=== PATIENT | male | born 1960 | race Caucasian/White ===

== ENCOUNTER 2016-11-04 11:17 | Inpatient (IN) | payer OTHER ==
[2016-11-04 12:24] VITALS: BMI 21.7
[2016-11-04 12:36] LABS: BASO # 0.1 K/uL (0.0-0.2); BASO % 0.7 % (0.0-2.0); EOS # 0.1 K/uL (0.0-0.7); EOS % 1.6 % (0.0-4.0); HEMOGLOBIN 9.1 g/dL (12.0-18.0); LYMPH # 0.9 K/uL (1.0-4.3); LYMPH % 11.7 % (20.0-40.0); MEAN CORPUSCULAR HEMOGLOBIN 37.2 pg (27.0-31.0); MEAN CORPUSCULAR HGB CONC 33.4 g/dL (33.0-37.0); MEAN PLATELET VOLUME 7.8 fL (7.2-11.7); MONO # 0.5 K/uL (0.0-0.8); MONO % 6.5 % (0.0-10.0); NEUT # 5.8 K/uL (1.8-7.0); NEUT % 79.5 % (50.0-75.0); RBC 2.44 Mil/uL (4.40-5.90); RED CELL DISTRIBUTION WIDTH 14.2 % (11.5-14.5); WHITE BLOOD COUNT 7.3 K/uL (4.8-10.8)
[2016-11-04 12:40] LABS: MEAN CELL VOLUME 111.6 fL (80.0-94.0)
[2016-11-04 12:45] LABS: ALBUMIN 2.8 g/dL (3.5-5.0)
[2016-11-04 12:48] LABS: ALB/GLOB RATIO 0.7 (1.0-2.1); ALT/SGPT 27 U/L (21-72); AST/SGOT 70 U/L (17-59); BLOOD UREA NITROGEN 12 mg/dL (9-20); CALCIUM 8.3 mg/dl (8.6-10.4); GFR AFRICAN-AMERICAN > 60; GFR NON-AFRICAN AMERICAN > 60
--- NOTE | 2016-11-04 13:24 | C.PDOC ---
History Of Present Illness 56 year old male who presents to the ER with a complaint of intermittent lightheadedness and unsteady gait for the past 3 weeks. Patient states he has never had symptoms like this before; he reports multiple occasions where he has fallen backwards and hit his head due to the symptoms. Denies headache, fever, cough, nausea, vomiting, or diarrhea. Time Seen by Provider: 11/04/16 13:01 Chief Complaint (Nursing): Dizziness/Lightheaded History Per: Patient History/Exam Limitations: no limitations Onset/Duration Of Symptoms: Days (3 weeks), Intermittent Episodes Current Symptoms Are (Timing): Still Present Activity At Onset Of Symptoms: Standing, Walking Associated Symptoms Preceding Syncopal Episode: Lightheadedness Seizure Or Post-ictal Symptoms: None Fall Associated With With Symptoms: Yes Recent travel outside of the [place]: No - Symptoms Of CVA Associated Symptoms: denies: Impaired Speech, Seizure Activity, New Vision Deficit(Left), New Vision Deficit(Right), Decreased Ability To Walk, New Confusion, Other Past Medical History Reviewed: Historical Data, Nursing Documentation, Vital Signs Vital Signs: Last Vital Signs Temp 98.8 F 11/05/16 16:00 Pulse 81 11/05/16 16:00 Resp 20 11/05/16 16:00 BP 136/88 11/05/16 16:00 Pulse Ox 100 11/05/16 16:00 - Medical History PMH: HIV, HTN, Seizures Surgical History: No Surg Hx - [facility] Procedures INTRODUCTION OF NUTRITIONAL INTO PERIPH VEIN, PERC APPROACH (02/06/16) Family History: States: Unknown Family Hx - Social History Hx Alcohol Use: Yes Hx Substance Use: No - Immunization History Hx Influenza Vaccination: No Review Of Systems Except As Marked, All Systems Reviewed And Found Negative. Constitutional: Negative for: Fever Cardiovascular: Negative for: Chest Pain, Palpitations Respiratory: Negative for: Cough Gastrointestinal: Negative for: Nausea, Vomiting, Diarrhea Neurological: Positive for: Other (Lightheadedness. Unsteady gait.). Negative for: Headache Physical Exam - Physical Exam Appears: Non-toxic, No Acute Distress Skin: Normal Color, Warm, Dry Head: Atraumatic, Normacephalic Eye(s): bilateral: Normal Inspection, PERRL, EOMI Oral Mucosa: Moist Neck: Normal, Supple Chest: Symmetrical, No Tenderness Cardiovascular: Rhythm Regular, No Murmur Respiratory: Normal Breath Sounds, No Rales, No Rhonchi, No Wheezing Gastrointestinal/Abdominal: Soft, No Tenderness Pulses: Left Radial: Normal, Right Radial: Normal Neurological/Psych: Oriented x3, Normal Speech, Normal Cognition, Normal Motor, Normal Sensation ED Course And Treatment - Laboratory Results Result Diagrams: 11/05/16 08:08 11/05/16 08:08 O2 Sat by Pulse Oximetry: 100 (Room air) Pulse Ox Interpretation: Normal - CT Scan/US CT Head Other Rad Studies (CT/US): Read By Radiologist, Radiology Report Reviewed CT/US Interpretation: PROCEDURE: CT HEAD WITHOUT CONTRAST. HISTORY: off balance hx HIV. COMPARISON: 02/06/2016. TECHNIQUE: Axial computed tomography images were obtained through the head/brain without intravenous contrast. Radiation dose: Total exam DLP = 981.84 mGy-cm. This CT exam was performed using one or more of the following dose reduction techniques: Automated exposure control, adjustment of the mA and/or kV according to patient size, and/or use of iterative reconstruction technique. FINDINGS: HEMORRHAGE: No intracranial hemorrhage. BRAIN: No mass effect or edema. Mild to moderate diffuse atrophy slightly greater than expected patient age. Mild periventricular white matter lucency consistent with age related chronic microvascular ischemic change. No evidence of acute infarct. VENTRICLES: Unremarkable. No hydrocephalus. CALVARIUM: Unremarkable. PARANASAL SINUSES: Mild chronic ethmoid and sphenoid sinusitis. MASTOID AIR CELLS: Unremarkable as visualized. No inflammatory changes. OTHER FINDINGS: None. IMPRESSION: No intracranial mass, hemorrhage or evidence of acute infarct. Mild to moderate atrophy slightly greater than expected for patient age. Mild chronic white matter ischemic change. Medical Decision Making Medical Decision Making: EKG, head CT, potassium, and urinalysis ordered. EKG: Sinus tach 101, normal axis, no STEMI. Disposition - Disposition Disposition: HOSPITALIZED Disposition Time: 15:31 Condition: STABLE - Clinical Impression Clinical Impression: Dizziness, HIV disease, Unsteady gait - Scribe Statement The provider has reviewed the documentation as recorded by the Scriblillian Clark All medical record entries made by the Scribe were at my direction and personally dictated by me. I have reviewed the chart and agree that the record accurately reflects my personal performance of the history, physical exam, medical decision making, and the department course for this patient. I have also personally directed, reviewed, and agree with the discharge instructions and disposition.
[2016-11-04] MEDS ORDERED: Potassium Chloride 20 mEq ER Tab PO STA (13:32)
[2016-11-04] MEDS ORDERED: Potassium Chloride 20 mEq ER Tab PO ONE (13:43)
--- NOTE | 2016-11-04 14:24 | CT ---
PROCEDURE: CT HEAD WITHOUT CONTRAST. HISTORY: off balance hx HIV COMPARISON: 02/06/2016 TECHNIQUE: Axial computed tomography images were obtained through the head/brain without intravenous contrast. Radiation dose: Total exam DLP = 981.84 mGy-cm. This CT exam was performed using one or more of the following dose reduction techniques: Automated exposure control, adjustment of the mA and/or kV according to patient size, and/or use of iterative reconstruction technique. FINDINGS: HEMORRHAGE: No intracranial hemorrhage. BRAIN: No mass effect or edema. Mild to moderate diffuse atrophy slightly greater than expected patient age. Mild periventricular white matter lucency consistent with age related chronic microvascular ischemic change. No evidence of acute infarct. VENTRICLES: Unremarkable. No hydrocephalus. CALVARIUM: Unremarkable. PARANASAL SINUSES: Mild chronic ethmoid and sphenoid sinusitis. MASTOID AIR CELLS: Unremarkable as visualized. No inflammatory changes. OTHER FINDINGS: None. IMPRESSION: No intracranial mass, hemorrhage or evidence of acute infarct. Mild to moderate atrophy slightly greater than expected for patient age. Mild chronic white matter ischemic change.
[2016-11-04 15:39] LABS: SQUAMOUS EPITHIAL < 1 /hpf (0-5); URINE BILIRUBIN NEGATIVE (NEGATIVE); URINE BLOOD NEGATIVE (NEGATIVE); URINE CLARITY Clear (Clear); URINE COLOR Yellow (YELLOW); URINE GLUCOSE (UA) NORMAL (Normal); URINE LEUKOCYTE ESTERASE NEG Leu/uL (Negative); URINE NITRATE NEGATIVE (NEGATIVE); URINE PROTEIN NEGATIVE (NEGATIVE); URINE UROBILINOGEN NORMAL mg/dL (0.2-1.0)
--- NOTE | 2016-11-04 20:52 | CP.PCM.HP ---
History of Present Illness - History of Present Illness History of Present Illness: COMPREHENSIVE HISTORY & PHYSICAL EXAM HPI Patient is admitted for acute vertigo, unable to walk with unsteady gait. For the last couple of weeks patient been complaining of severe dizziness, unable to walk and with unsteady gait. There is no history of fall or loss of consciousness. Patient has no loss of power in the lower extremities. PAST HIST. Patient is a history of HIV for a long time on anti-viral therapy. Patient was admitted in [facility] in 2016 for acute diarrhea and renal failure. During that time patient had cryptosporidial and positive toxoplasma titers. Patient was treated adequately and has since then resolved. PERSONAL HIST: Smoking. N Alcohol. N Allergy N Travel_- . FAMILY HIST : ROS : Constitutional: Negative for weight change, chills, night sweats, fatigue and usage of assist device. Eyes: Negative for redness, swelling, itching, discharge, vision changes, blurry vision, double vision, glaucoma, cataracts, Ears: Negative for hearing loss, ringing, , tinnitus, vertigo Nose: Negative for rhinorrhea, stuffiness, sniffing, itching, postnasal drip, discoloration, nasal congestion and epistaxis. Throat: Negative for throat clearing, sore throat, hoarseness, difficulty swallowing and difficulty speaking. Respiratory: Negative for cough, chest tightness, sputum or phlegm, chronic cough, hemoptysis, wheezing, snoring at night, pleuritic chest pain and daytime somnolence. Cardiovascular: Negative for chest pain, palpitations, orthopnea, PND, Edema of legs, leg cramps, angina, claudication, , irregular heartbeat, Neurology: Negative for irritability, muscle weakness, numbness and tingling, seizures, tremors, migraines, slurred speech, syncope, memory loss, mood changes , recurrent headaches Gastrointestinal: Negative for difficulty swallowing, diarrhea, constipation, black stools, rectal bleeding, nausea, flatulence, reflux, poor appetite, changes in bowel habits, abdominal pain Genitourinary: Negative for frequent urination, hematuria, discharge, incontinence, urinary retention, frequent UTI, Psychiatric: Negative for depression, anxiety/panic, suicidal tendencies, Musculoskeletal: Negative for swollen joints, back pain, , neck pain, morning stiffness of joints, . Skin: Negative for rash, ulcers, itching, dry skin and pigmented lesions. P/E: Constitutional: Appears stated age and in no apparent distress. Head: Normocephalic. Ears: External ear canals patent without inflammation. Tympanic membranes intact with normal light reflex and landmark. Eyes: Pupils are central, bilaterally equal, symmetrical and reacts to light with normal movements and no icterus or pallor. Nose: External nares are patent. Mucosa is pink Mouth-Throat: Good general appearance and condition. No post-pharyngeal/oropharyngeal erythema and tonsillar hypertrophy. Good dental hygiene. Neck-Lymphatic: Neck is supple with normal ROM, no thyromegaly, lymph nodes or masses. JVD is normal with no carotid bruit. Lungs: Clear to percussion and auscultation with bilateral normal air entry. Cardiovascular: S1 and S2 are normal with no murmurs, gallops and rub. GI Exam: No hepatomegaly. Abdomen is soft and non-tender. No Organomegaly , masses or hernias are evident and bowel sounds are normal and active. Neurology: Higher function and all cranial nerves intact, with no gross motor or sensory deficit. Superficial and deep reflexes are normal with downwards planters. No cerebellar deficit with normal gait. Musculoskeletal: No tender spots with normal curvature of the spine with no swelling or restricted ROM of the small and large joints. Extremities: Homans sign absent. Intact pulses with no pitting edema, calf tenderness or skin color changes. Skin: No rash, eruptions or abnormal skin pigmentation LAB/RADIOLOGY: ASSESMENT : Acute vertigo, probably secondary to labyrinthitis. No evidence of any cerebellar involvement or peripheral neuropathy. HIV positive, on Anti retroviral therapy Present on Admission - Present on Admission Any Indicators Present on Admission: No Past Patient History - Infectious Disease Hx of Infectious Diseases: None - Past Medical History & Family History Past Medical History?: Yes - Past Social History Smoking Status: Heavy Smoker > 10 Cigarettes Daily - CARDIAC Hx Hypertension: Yes - PULMONARY Hx Respiratory Disorders: No - NEUROLOGICAL Hx Seizures: Yes - HEENT Hx HEENT Problems: No - RENAL Hx Chronic Kidney Disease: No - ENDOCRINE/METABOLIC Hx Endocrine Disorders: No - HEMATOLOGICAL/ONCOLOGICAL Hx Human Immunodeficiency Virus (HIV): Yes - INTEGUMENTARY Hx Dermatological Problems: No - MUSCULOSKELETAL/RHEUMATOLOGICAL Hx Musculoskeletal Disorders: No Hx Falls: No - GASTROINTESTINAL Hx Gastrointestinal Disorders: No - GENITOURINARY/GYNECOLOGICAL Hx Genitourinary Disorders: No - PSYCHIATRIC Hx Substance Use: No - SURGICAL HISTORY Hx Surgeries: Yes Other/Comment: lump in the back- 10 yrs. ago - ANESTHESIA Hx Anesthesia: Yes Hx Anesthesia Reactions: No Hx Malignant Hyperthermia: No Meds Allergies/Adverse Reactions: Allergies Allergy/AdvReac Type Severity Reaction Status Date / Time Penicillins Allergy Verified 02/06/16 11:28 Results - Vital Signs Recent Vital Signs: Last Vital Signs Temp 98.4 F 11/04/16 13:05 Pulse 76 11/04/16 18:57 Resp 18 11/04/16 18:57 BP 124/85 11/04/16 18:57 Pulse Ox 98 11/04/16 18:57 - Labs Result Diagrams: 11/04/16 12:29 11/04/16 12:29
--- NOTE | 2016-11-04 21:15 | CP.PCM.CON ---
History of Present Illness - History of Present Illness History of Present Illness: INFECTIOUS DISEASE CONSULT; HPI; 56-YEAR-OLD MALE WITH HISTORY OF HIV POSITIVE FOR THE PAST 8 YEARS,ON HAART THERAPY, HYPERTENSION KNOWN TO ME FROM HIS PREVIOUS ADMISSION OF january 2016 WHEN HE WAS ADMITTED FOR DIARRHEA, ACUTE RENAL FAILURE AND HISTORY OF MULTIPLE FALLS. 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 PATIENT HAS BEEN FOLLOWING UP AT HIV clinic in [place]. Patient now comes in with complaints off intermittent lightheadedness and unsteady gait for the past 3 weeks. Patient denies any headache, fever, nausea or vomiting. Patient denies any diarrhea or obstipation. Patient states he might have lost a couple of pounds because he was not eating and drinking much as he was unable to venture out on his home. Patient also presently denies any visual problems, ear pain or any discharge from the ear. 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 Patient had an MRI of the brain in 2016 which was negative for any mass lesions. Patient presently on Epivir 150 mg by mouth once a day daily, ritonavir 100 mg once a day daily, Tivicay 50 mg by mouth twice a day, ?Intelence, ? Prezista. PATIENT ALSO IS POSITIVE FOR HEPATITIS B SURFACE ANTIGEN. PATIENT LAST cd4 COUNT WAS 254 WITH cd4 cd8 RATIOS 0.58. INFECTIOUS DISEASE CONSULTATION REQUESTED BY DR JOINER FOR ABOVE. Allergy; PENICILLIN. PMH: HIV, HTN, Seizures Surgical History: No Surg Hx - [facility] Procedures INTRODUCTION OF NUTRITIONAL INTO PERIPH VEIN, PERC APPROACH (02/06/16) Family History: States: Unknown Family Hx - Social History Hx Alcohol Use: Yes Hx Substance Use: No SMOKING; 10 CIGG/DAY X SEVERAL YRS - Immunization History Hx Influenza Vaccination: No Review of Systems - Constitutional Constitutional: Frequent Falls, Weakness. absent: Chills, Fever - EENT Eyes: absent: Change in Vision, Floaters, Other Visual Disturbances, Loss of Vision Nose/Mouth/Throat: absent: Mouth Lesions - Cardiovascular Cardiovascular: absent: Chest Pain, Dyspnea - Respiratory Respiratory: absent: Cough - Gastrointestinal Gastrointestinal: absent: Abdominal Pain, Diarrhea, Nausea, Vomiting - Neurological Neurological: Abnormal Gait, Dizziness - Hematologic/Lymphatic Hematologic: As Per HPI. absent: Lymphadenopathy Past Patient History - Infectious Disease Hx of Infectious Diseases: None - Past Medical History & Family History Past Medical History?: Yes - Past Social History Smoking Status: Heavy Smoker > 10 Cigarettes Daily - CARDIAC Hx Hypertension: Yes - PULMONARY Hx Respiratory Disorders: No - NEUROLOGICAL Hx Seizures: Yes - HEENT Hx HEENT Problems: No - RENAL Hx Chronic Kidney Disease: No - ENDOCRINE/METABOLIC Hx Endocrine Disorders: No - HEMATOLOGICAL/ONCOLOGICAL Hx Human Immunodeficiency Virus (HIV): Yes - INTEGUMENTARY Hx Dermatological Problems: No - MUSCULOSKELETAL/RHEUMATOLOGICAL Hx Musculoskeletal Disorders: No Hx Falls: No - GASTROINTESTINAL Hx Gastrointestinal Disorders: No - GENITOURINARY/GYNECOLOGICAL Hx Genitourinary Disorders: No - PSYCHIATRIC Hx Substance Use: No - SURGICAL HISTORY Hx Surgeries: Yes Other/Comment: lump in the back- 10 yrs. ago - ANESTHESIA Hx Anesthesia: Yes Hx Anesthesia Reactions: No Hx Malignant Hyperthermia: No Meds Allergies/Adverse Reactions: Allergies Allergy/AdvReac Type Severity Reaction Status Date / Time Penicillins Allergy Verified 02/06/16 11:28 - Medications Medications: Current Medications Meclizine HCl (Antivert) 25 mg PO Q8 [facility] Physical Exam - Constitutional Appears: No Acute Distress - Head Exam Head Exam: NORMAL INSPECTION - Eye Exam Eye Exam: EOMI, PERRL - ENT Exam ENT Exam: Normal Oropharynx - Neck Exam Neck exam: Positive for: Normal Inspection - Respiratory Exam Respiratory Exam: Clear to Auscultation Bilateral - Cardiovascular Exam Cardiovascular Exam: REGULAR RHYTHM, +S1, +S2 - GI/Abdominal Exam GI & Abdominal Exam: Normal Bowel Sounds, Soft. absent: Organomegaly, Tenderness - Extremities Exam Extremities exam: Positive for: pedal pulses present. Negative for: calf tenderness, pedal edema - Neurological Exam Neurological exam: Alert, CN II-XII Intact, Oriented x3 Additional comments: gait not tested romberg -ve - Skin Skin Exam: Normal Color, Warm Results - Vital Signs Recent Vital Signs: Last Vital Signs Temp 98.4 F 11/04/16 13:05 Pulse 76 11/04/16 18:57 Resp 18 11/04/16 18:57 BP 124/85 11/04/16 18:57 Pulse Ox 98 11/04/16 18:57 - Labs Result Diagrams: 11/05/16 08:08 11/05/16 08:08 - Imaging and Cardiology CT scan - head Status: Report reviewed by me (-VE) Assessment & Plan (1) HIV disease Assessment and Plan: continue HAART therapy. PLEASE CALL CLINIC TO SEE WHAT MEDS HE IS GETTING AND DOSAGES. CHECK hiv 1 rna pcr QUANTITATIVE LEVELS lYMPHOCYTE SUBSET STUDIES Status: Acute (2) Hypokalemia Assessment and Plan: k supplement Status: Acute (3) Vertigo Assessment and Plan: MRI of the brain rule out mass lesion.. Consider neurology evaluation r/o seizure disorder. History of falls as reported Status: Acute (4) Hepatitis B surface antigen positive Assessment and Plan: WILL CHECK HEPATITIS SCREEN HBV DNA pcr QUANTITATIVE LEVELS. Status: Acute (5) Anemia Assessment and Plan: H/H LOW . HEMATOLOGY CONSULT. Status: Acute
[2016-11-05 08:28] LABS: ALBUMIN 2.5 g/dL (3.5-5.0)
[2016-11-05 08:31] LABS: ALB/GLOB RATIO 0.7 (1.0-2.1); ALT/SGPT 33 U/L (21-72); AST/SGOT 64 U/L (17-59); BLOOD UREA NITROGEN 14 mg/dL (9-20); GFR AFRICAN-AMERICAN > 60; GFR NON-AFRICAN AMERICAN > 60
[2016-11-05 08:32] LABS: BASO % 0.6 % (0.0-2.0); EOS # 0.1 K/uL (0.0-0.7); EOS % 1.9 % (0.0-4.0); HEMOGLOBIN 7.9 g/dL (12.0-18.0); LYMPH # 1.1 K/uL (1.0-4.3); LYMPH % 18.2 % (20.0-40.0); MEAN CELL VOLUME 111.4 fL (80.0-94.0); MEAN CORPUSCULAR HEMOGLOBIN 36.5 pg (27.0-31.0); MEAN CORPUSCULAR HGB CONC 32.7 g/dL (33.0-37.0); MEAN PLATELET VOLUME 8.5 fL (7.2-11.7); MONO # 0.4 K/uL (0.0-0.8); MONO % 6.5 % (0.0-10.0); NEUT # 4.4 K/uL (1.8-7.0); NEUT % 72.8 % (50.0-75.0); NRBC % 0.1 % (0.0-2.0); RBC 2.17 Mil/uL (4.40-5.90); WHITE BLOOD COUNT 6.1 K/uL (4.8-10.8)
[2016-11-05 09:06] LABS: HEPATITIS A IGM NEGATIVE (NEGATIVE); HEPATITIS B CORE AB NEGATIVE (NEGATIVE)
[2016-11-05 09:08] LABS: HEPATITIS B CORE AB NEGATIVE (NEGATIVE)
[2016-11-05 09:18] LABS: HEPATITIS C ANTIBODY NEGATIVE (NEGATIVE)
[2016-11-05 09:21] LABS: HEPATITIS C ANTIBODY NEGATIVE (NEGATIVE)
[2016-11-05] MEDS ORDERED: Gadodiamide 287 MG/ML VIAL (15ML) IV ONE (09:38)
[2016-11-05 10:22] LABS: HEPATITIS B SURFACE AG POSITIVE (NEGATIVE)
[2016-11-05 10:35] LABS: HEP B SURFACE AG CONF CONFIRMED POSITIVE
--- NOTE | 2016-11-05 13:03 | CP.PCM.PN ---
Subjective - Date & Time of Evaluation Date of Evaluation: 11/05/16 Time of Evaluation: 13:01 - Subjective Subjective: CHIEF COMPLAINTS TODAY : DIZZY WHEN WALKS H/H LOW 7.9 ROS. HEENT : N. Resp : No cough, wheezing ,pleuritic CP ,or hemoptysis Cardio : No anginal CP, PND, orthopnea, palpitation GI : No abd.pain, n/v ,diarrhea or GI bleeding . DIRECTOR OF MIDWIFERY/STAFF MIDWIFE : No headache, focal deficit. Musculoskel : No joint swelling , Derm : No rash Psych : Normal affect. Ext : No swelling ,calf pain PE. Pt. is alert awake in no distress. V.S As noted in the chart Head ,ear nose,throat and eyes : Normal. Neck : Supple with normal carotids. Lungs: Clear air entry. Heart : S1 & S2 normal with S4. No murmur. Abd : Soft non tender with normal bowel sounds. Neuro : Moves all ext. with no localized deficit. Ext : No edema with intact pulses.Non tender calves Derm : No rashes or decubitus ulcer. LABS/RADIOLOGY: MRI : P ASSESSMENT/PLAN : HEM EVAL Objective - Vital Signs/Intake and Output Vital Signs (last 24 hours): Temp Pulse Resp BP Pulse Ox 98.9 F 92 H 20 111/74 100 11/05/16 09:06 11/05/16 09:06 11/05/16 09:06 11/05/16 09:06 11/05/16 09:06 - Medications Medications: Current Medications Dolutegravir Sodium (Tivicay) 50 mg PO BID [facility] Last Admin: 11/05/16 09:52 Dose: 50 mg Lamivudine (Epivir) 150 mg PO BID [facility] Last Admin: 11/05/16 09:53 Dose: 150 mg Meclizine HCl (Antivert) 25 mg PO Q8 [facility] Last Admin: 11/05/16 06:05 Dose: 25 mg Pneumococcal Polyvalent Vaccine (Pneumovax 23 Vaccine) 0.5 ml IM .ONCE ONE Stop: 11/06/16 10:01 Ritonavir (Norvir) 100 mg PO DAILY [facility] Last Admin: 11/05/16 09:52 Dose: 100 mg - Labs Labs: 11/05/16 08:08 11/05/16 08:08
--- NOTE | 2016-11-05 14:52 | MRI ---
PROCEDURE: MRI BRAIN WITHOUT CONTRAST HISTORY: vertigo COMPARISON: Comparison made with CT scan brain dated 11/04/2016 TECHNIQUE: Multiplanar, multisequence MR images of the brain were obtained without intravenous contrast enhancement. FINDINGS: HEMORRHAGE: No acute parenchymal, subarachnoid or extra-axial hemorrhage. DWI: There is a small rounded infarct in the midbrain/ upper tamara region which exhibits very faint restricted diffusion however this does not appear acute on ADC map and may represent a subacute to chronic infarct associate with some shine through artifact. Clinical correlation recommended. BRAIN PARENCHYMA: Additionally, there are mild chronic periventricular white matter ischemic changes and multiple more discrete lacunar-type infarcts scattered about the deep and subcortical white matter both cerebral hemispheres. Moderate to significant generalized volume loss. VENTRICLES: No obstructive hydrocephalus CRANIUM: Calvarium appears grossly unremarkable. ORBITS: Orbits unremarkable. PARANASAL SINUSES/MASTOIDS: Clear VASCULAR SYSTEM: Visualized major vascular flow voids at skull base are patent. OTHER FINDINGS: None. IMPRESSION: No acute intracranial hemorrhage. There is small medium-sized infarct within the brainstem which may represent subacute to chronic infarct with some shine through artifact. Chronic white matter ischemic changes. Moderate to fairly significant generalized volume loss.
[2016-11-05 19:27] LABS: FOLATE 3.3 ng/mL
[2016-11-06] MEDS ORDERED: Pneumococcal 23-Valent Vaccine IM ONE (10:00)
--- NOTE | 2016-11-06 12:57 | CP.PCM.CON ---
History of Present Illness - History of Present Illness History of Present Illness: 56 year old male with a history of HIV on HAART, HTN, recently completed treatment for cryptosporidiosis, admitted with vertigo, found to be anemic. The patient denies abnormal bleeding and bruising. He has been feeling more dizzy which prompted him to come to the hospital. Review of his blood work shows his hgb has trended from normal last year to 7.9. Past medical history: HIV, HTN Past surgical history: None Family history: Denies hematologic and oncologic problems Social history: 1/2 ppd x 40 years, social ETOH, denies illicit drug use. Allergies: PCN Review of systems: All remaining review of systems including HEENT, cardiovascular, respiratory, gastrointestinal, genitourinary, musculoskeletal, dermatologic, neurologic, and psychiatric are negative unless mentioned in the HPI. Past Patient History - Infectious Disease Hx of Infectious Diseases: None - Past Medical History & Family History Past Medical History?: Yes - Past Social History Smoking Status: Heavy Smoker > 10 Cigarettes Daily - CARDIAC Hx Hypertension: Yes - PULMONARY Hx Respiratory Disorders: No - NEUROLOGICAL Hx Seizures: Yes - HEENT Hx HEENT Problems: No - RENAL Hx Chronic Kidney Disease: No - ENDOCRINE/METABOLIC Hx Endocrine Disorders: No - HEMATOLOGICAL/ONCOLOGICAL Hx Human Immunodeficiency Virus (HIV): Yes - INTEGUMENTARY Hx Dermatological Problems: No - MUSCULOSKELETAL/RHEUMATOLOGICAL Hx Falls: Yes - GASTROINTESTINAL Hx Gastrointestinal Disorders: Yes Hx Diarrhea: Yes - GENITOURINARY/GYNECOLOGICAL Hx Genitourinary Disorders: No - PSYCHIATRIC Hx Substance Use: No - SURGICAL HISTORY Hx Surgeries: Yes Other/Comment: lump in the back- 10 yrs. ago - ANESTHESIA Hx Anesthesia: Yes Hx Anesthesia Reactions: No Hx Malignant Hyperthermia: No Has any member of the family had a problem w/ anesthesia?: No Meds Allergies/Adverse Reactions: Allergies Allergy/AdvReac Type Severity Reaction Status Date / Time Penicillins Allergy Verified 02/06/16 11:28 - Medications Medications: Current Medications Dolutegravir Sodium (Tivicay) 50 mg PO BID [facility] Last Admin: 11/05/16 18:00 Dose: 50 mg Lamivudine (Epivir) 150 mg PO BID [facility] Last Admin: 11/05/16 18:00 Dose: 150 mg Meclizine HCl (Antivert) 25 mg PO Q8 [facility] Last Admin: 11/06/16 05:38 Dose: 25 mg Ritonavir (Norvir) 100 mg PO DAILY [facility] Last Admin: 11/05/16 09:52 Dose: 100 mg Physical Exam - Head Exam Head Exam: ATRAUMATIC - Eye Exam Eye Exam: Normal appearance - ENT Exam ENT Exam: Mucous Membranes Dry - Respiratory Exam Respiratory Exam: NORMAL BREATHING PATTERN - Cardiovascular Exam Cardiovascular Exam: +S1, +S2 - GI/Abdominal Exam GI & Abdominal Exam: Normal Bowel Sounds - Extremities Exam Extremities exam: Positive for: normal inspection Results - Vital Signs Recent Vital Signs: Last Vital Signs Temp 98.4 F 11/06/16 00:20 Pulse 85 11/06/16 00:20 Resp 20 11/06/16 00:20 BP 138/84 11/06/16 00:20 Pulse Ox 100 11/06/16 00:20 - Labs Result Diagrams: 11/05/16 08:08 11/05/16 08:08 Labs: Laboratory Results - last 24 hr 11/05/16 11/05/16 17:56 17:56 Retic Count 2.9 H Ferritin 678.0 Vitamin B12 651 Folate 3.3 Assessment & Plan (1) Anemia Assessment and Plan: will check ferritin, retic count, b12, folate, FOBT to further characterize suspect anemia of HIV and consider Procrit to decrease transfusion dependence Thank you for this interesting consult. Status: Acute
[2016-11-06] MEDS ORDERED: Epoetin Alfa 20000 UNIT/ML Inj SC ONE (13:07)
--- NOTE | 2016-11-06 13:07 | CP.PCM.PN ---
Subjective - Date & Time of Evaluation Date of Evaluation: 11/06/16 Time of Evaluation: 13:00 - Subjective Subjective: No complaints at rest Objective - Vital Signs/Intake and Output Vital Signs (last 24 hours): Temp Pulse Resp BP Pulse Ox 98.4 F 85 20 138/84 100 11/06/16 00:20 11/06/16 00:20 11/06/16 00:20 11/06/16 00:20 11/06/16 00:20 Intake and Output: 11/06/16 11/06/16 06:59 18:59 Intake Total 580 Balance 580 - Medications Medications: Current Medications Dolutegravir Sodium (Tivicay) 50 mg PO BID [facility] Last Admin: 11/05/16 18:00 Dose: 50 mg Lamivudine (Epivir) 150 mg PO BID [facility] Last Admin: 11/05/16 18:00 Dose: 150 mg Meclizine HCl (Antivert) 25 mg PO Q8 [facility] Last Admin: 11/06/16 05:38 Dose: 25 mg Ritonavir (Norvir) 100 mg PO DAILY [facility] Last Admin: 11/05/16 09:52 Dose: 100 mg - Labs Labs: 11/05/16 08:08 11/05/16 08:08 - Head Exam Head Exam: ATRAUMATIC - Eye Exam Eye Exam: Normal appearance - ENT Exam ENT Exam: Mucous Membranes Dry - Respiratory Exam Respiratory Exam: NORMAL BREATHING PATTERN - Cardiovascular Exam Cardiovascular Exam: +S1, +S2 - GI/Abdominal Exam GI & Abdominal Exam: Normal Bowel Sounds - Extremities Exam Extremities Exam: Normal Inspection Assessment and Plan (1) Anemia Assessment & Plan: elevated ferritin consistent with chronic disease likely from HIV will repeat CBC today and type and screen for possible transfusion if hgb remains < 8 f/u FOBT Procrit Status: Acute
--- NOTE | 2016-11-06 13:39 | CP.PCM.PN ---
Subjective - Date & Time of Evaluation Date of Evaluation: 11/06/16 Time of Evaluation: 13:39 - Subjective Subjective: CHIEF COMPLAINTS TODAY : AFEBRILE Complains of dizziness. Seen by hematology and on Procrit H/H LOW 7.9 /24.2 s.Ferritin 678 high ROS. HEENT : N. Resp : No cough, wheezing ,pleuritic CP ,or hemoptysis Cardio : No anginal CP, PND, orthopnea, palpitation GI : No abd.pain, n/v ,diarrhea or GI bleeding . BUSINESS ANALYTICS INTERN : No headache, focal deficit. +ve dizziness/ataxia Musculoskel : No joint swelling , Derm : No rash Psych : Normal affect. Ext : No swelling ,calf pain PE. Pt. is alert awake in no distress.LOOKS PALE V.S As noted in the chart Head ,ear nose,throat and eyes : Normal. Neck : Supple with normal carotids. Lungs: Clear air entry. Heart : S1 & S2 normal with S4. No murmur. Abd : Soft non tender with normal bowel sounds. Neuro : Moves all ext. with no localized deficit. Ext : No edema with intact pulses.Non tender calves Derm : No rashes or decubitus ulcer. LABS/RADIOLOGY: lftS BILI 1.7 ast 64 IMPROVING alt 37 ALKALINE PHOSPHATASE NORMAL. HBSAG +VE hEP C ANTIBODY NEGATIVE. 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 Objective - Vital Signs/Intake and Output Vital Signs (last 24 hours): Temp Pulse Resp BP Pulse Ox 98.4 F 85 20 138/84 100 11/06/16 00:20 11/06/16 00:20 11/06/16 00:20 11/06/16 00:20 11/06/16 00:20 Intake and Output: 11/06/16 11/06/16 06:59 18:59 Intake Total 580 Balance 580 - Medications Medications: Current Medications Dolutegravir Sodium (Tivicay) 50 mg PO BID [facility] Last Admin: 11/06/16 13:31 Dose: 50 mg Lamivudine (Epivir) 150 mg PO BID [facility] Last Admin: 11/06/16 13:30 Dose: 150 mg Meclizine HCl (Antivert) 25 mg PO Q8 [facility] Last Admin: 11/06/16 13:30 Dose: 25 mg Ritonavir (Norvir) 100 mg PO DAILY [facility] Last Admin: 11/06/16 13:31 Dose: 100 mg - Labs Labs: 11/05/16 08:08 11/05/16 08:08 Assessment and Plan (1) HIV disease Assessment & Plan: continue antiretroviral therapy. Patient on Epivir 150 mg by mouth twice a day Ritonavir 100 mg once a day daily Tivicay 50 mg twice a day with food Intelence (ETRAVIRINE ) 200 mg by mouth twice a day.-Pharmacy does not carry . Patient can have his own medication. RN notified. F/U HIV RNA PCR- QUANTITATIVE LEVELS LYMPHOCYTE SUBSET STUDIES. Status: Acute (2) Hypokalemia Assessment & Plan: K -improving Status: Acute (3) Anemia Assessment & Plan: ANEMIA WORKUP IN PROGRESS. ANEMIA MOST LIKELY ANEMIA OF CHRONIC DISEASE. R/O gi BLEEDING. sTOOLS FOR OCCULT BLOOD PENDING Status: Acute (4) Dizziness Status: Acute (5) Hepatitis B surface antigen positive Assessment & Plan: WE WILL GET HBV DNA PCR- QUANTITATIVE LEVELS.. CHECK HEPATITIS B SURFACE ANTIBODY, HBEAG /HBE ANTIBODY. MONITOR LIVER .FUNCTIONS CLOSELY. CONTACT PRECAUTIONS. \ BODY FLUID AND SECRETION PRECAUTIONS. 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 Moderate to significant volume loss. see full report. Status: Acute
--- NOTE | 2016-11-06 13:41 | CP.PCM.PN ---
Subjective - Date & Time of Evaluation Date of Evaluation: 11/06/16 Time of Evaluation: 13:40 - Subjective Subjective: CHIEF COMPLAINTS TODAY : DIZZY WHEN WALKS H/H LOW 7.9 ROS. HEENT : N. Resp : No cough, wheezing ,pleuritic CP ,or hemoptysis Cardio : No anginal CP, PND, orthopnea, palpitation GI : No abd.pain, n/v ,diarrhea or GI bleeding . 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 Musculoskel : No joint swelling , Derm : No rash Psych : Normal affect. Ext : No swelling ,calf pain PE. Pt. is alert awake in no distress. V.S As noted in the chart Head ,ear nose,throat and eyes : Normal. Neck : Supple with normal carotids. Lungs: Clear air entry. Heart : S1 & S2 normal with S4. No murmur. Abd : Soft non tender with normal bowel sounds. Neuro : Moves all ext. with no localized deficit. Ext : No edema with intact pulses.Non tender calves Derm : No rashes or decubitus ulcer. LABS/RADIOLOGY: MRI OLD INFARCT IN MID BRAIN AND LACUNAR INFARCTS HEM EVAL NOTED ASSESSMENT/PLAN : CHECK H/H Objective - Vital Signs/Intake and Output Vital Signs (last 24 hours): Temp Pulse Resp BP Pulse Ox 98.4 F 85 20 138/84 100 11/06/16 00:20 11/06/16 00:20 11/06/16 00:20 11/06/16 00:20 11/06/16 00:20 Intake and Output: 11/06/16 11/06/16 11:59 23:59 Intake Total 240 Balance 240 - Medications Medications: Current Medications Dolutegravir Sodium (Tivicay) 50 mg PO BID [facility] Last Admin: 11/06/16 13:31 Dose: 50 mg Lamivudine (Epivir) 150 mg PO BID [facility] Last Admin: 11/06/16 13:30 Dose: 150 mg Meclizine HCl (Antivert) 25 mg PO Q8 [facility] Last Admin: 11/06/16 13:30 Dose: 25 mg Ritonavir (Norvir) 100 mg PO DAILY [facility] Last Admin: 11/06/16 13:31 Dose: 100 mg - Labs Labs: 11/05/16 08:08 11/05/16 08:08
--- NOTE | 2016-11-06 14:12 | CARD ---
APPROVED REPORT EKG Measurement Heart [id number] ID [id number] <Conclusion> Sinus tachycardia Cannot rule out Anterior infarct, age undetermined Abnormal ECG
[2016-11-06 18:16] LABS: HEMOGLOBIN 7.9 g/dL (12.0-18.0); MEAN CELL VOLUME 112.2 fL (80.0-94.0); MEAN CORPUSCULAR HEMOGLOBIN 36.8 pg (27.0-31.0); MEAN CORPUSCULAR HGB CONC 32.8 g/dL (33.0-37.0); MEAN PLATELET VOLUME 8.4 fL (7.2-11.7); RBC 2.16 Mil/uL (4.40-5.90); RED CELL DISTRIBUTION WIDTH 14.1 % (11.5-14.5); WHITE BLOOD COUNT 5.3 K/uL (4.8-10.8)
[2016-11-07 08:03] LABS: % CD4 (T HELPER CELL) 34 Percent (30-61); % CD8 (SUPPRESSOR T CELL) 58 Percent (12-42); ABSOLUTE CD4 CELLS 404 Cells/mcL (490-1740); ABSOLUTE CD8 CELLS 680 Cells/mcL (180-1170); ABSOLUTE LYMPHOCYTES 1183 Cells/mcL (850-3900); HELPER/SUPPRESSOR RATIO 0.59 Ratio (0.86-5.00)
[2016-11-07 08:33] LABS: BASO % 0.7 % (0.0-2.0); EOS # 0.1 K/uL (0.0-0.7); EOS % 1.6 % (0.0-4.0); HEMOGLOBIN 9.7 g/dL (12.0-18.0); LYMPH # 1.4 K/uL (1.0-4.3); LYMPH % 26.2 % (20.0-40.0); MEAN CORPUSCULAR HEMOGLOBIN 36.3 pg (27.0-31.0); MEAN CORPUSCULAR HGB CONC 33.8 g/dL (33.0-37.0); MEAN PLATELET VOLUME 8.3 fL (7.2-11.7); MONO # 0.3 K/uL (0.0-0.8); MONO % 6.3 % (0.0-10.0); NEUT # 3.5 K/uL (1.8-7.0); NEUT % 65.2 % (50.0-75.0); NRBC % 0.1 % (0.0-2.0); RBC 2.66 Mil/uL (4.40-5.90); RED CELL DISTRIBUTION WIDTH 17.9 % (11.5-14.5); WHITE BLOOD COUNT 5.4 K/uL (4.8-10.8)
[2016-11-07 08:37] LABS: MEAN CELL VOLUME 107.3 fL (80.0-94.0)
[2016-11-07 08:54] LABS: ALBUMIN 2.8 g/dL (3.5-5.0)
[2016-11-07 08:57] LABS: ALB/GLOB RATIO 0.7 (1.0-2.1); ALT/SGPT 32 U/L (21-72); AST/SGOT 61 U/L (17-59); BLOOD UREA NITROGEN 13 mg/dL (9-20); GFR AFRICAN-AMERICAN > 60; GFR NON-AFRICAN AMERICAN > 60
[2016-11-07 08:58] LABS: CALCIUM 8.6 mg/dl (8.6-10.4)
[2016-11-07 10:31] VITALS: RESP 20
--- NOTE | 2016-11-07 13:46 | CP.PCM.PN ---
Subjective - Date & Time of Evaluation Date of Evaluation: 11/07/16 Time of Evaluation: 13:45 - Subjective Subjective: CHIEF COMPLAINTS TODAY : DIZZY WHEN WALKS H/H LOW 7.9 ,REPEAT 1 PC TRANSFUSION GIVEN ROS. HEENT : N. Resp : No cough, wheezing ,pleuritic CP ,or hemoptysis Cardio : No anginal CP, PND, orthopnea, palpitation GI : No abd.pain, n/v ,diarrhea or GI bleeding . 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 Musculoskel : No joint swelling , Derm : No rash Psych : Normal affect. Ext : No swelling ,calf pain PE. Pt. is alert awake in no distress. V.S As noted in the chart Head ,ear nose,throat and eyes : Normal. Neck : Supple with normal carotids. Lungs: Clear air entry. Heart : S1 & S2 normal with S4. No murmur. Abd : Soft non tender with normal bowel sounds. Neuro : Moves all ext. with no localized deficit. Ext : No edema with intact pulses.Non tender calves Derm : No rashes or decubitus ulcer. LABS/RADIOLOGY: MRI OLD INFARCT IN MID BRAIN AND LACUNAR INFARCTS HEM EVAL NOTED ASSESSMENT/PLAN : CHECK H/H Objective - Vital Signs/Intake and Output Vital Signs (last 24 hours): Temp Pulse Resp BP Pulse Ox 98.2 F 99 H 20 130/91 H 96 11/07/16 07:00 11/07/16 07:00 11/07/16 07:00 11/07/16 07:00 11/07/16 07:00 Intake and Output: 11/07/16 11/07/16 11:59 23:59 Intake Total 650 Balance 650 - Medications Medications: Current Medications Dolutegravir Sodium (Tivicay) 50 mg PO BID [facility] Last Admin: 11/07/16 10:16 Dose: 50 mg Lamivudine (Epivir) 150 mg PO BID [facility] Last Admin: 11/07/16 10:16 Dose: 150 mg Meclizine HCl (Antivert) 25 mg PO Q8 [facility] Last Admin: 11/06/16 22:44 Dose: 25 mg Ritonavir (Norvir) 100 mg PO DAILY [facility] Last Admin: 11/07/16 10:16 Dose: 100 mg - Labs Labs: 11/07/16 08:20 11/07/16 08:20
--- NOTE | 2016-11-07 13:49 | CP.PCM.PN ---
Subjective - Date & Time of Evaluation Date of Evaluation: 11/07/16 Time of Evaluation: 13:49 - Subjective Subjective: CHIEF COMPLAINTS TODAY : AFEBRILE FEELS BETTER LESS DIZZY ROS. HEENT : N. Resp : No cough, wheezing ,pleuritic CP ,or hemoptysis Cardio : No anginal CP, PND, orthopnea, palpitation GI : No abd.pain, n/v ,diarrhea or GI bleeding . NOVELTIES SALES REPRESENTATIVE : No headache, focal deficit. +ve dizziness/ataxia Musculoskel : No joint swelling , Derm : No rash Psych : Normal affect. Ext : No swelling ,calf pain PE. Pt. is alert awake in no distress.LOOKS PALE V.S As noted in the chart Head ,ear nose,throat and eyes : Normal. Neck : Supple with normal carotids. Lungs: Clear air entry. Heart : S1 & S2 normal with S4. No murmur. Abd : Soft non tender with normal bowel sounds. Neuro : Moves all ext. with no localized deficit. Ext : No edema with intact pulses.Non tender calves Derm : No rashes or decubitus ulcer. LABS/RADIOLOGY: H/H 9.7/28.5 lftS BILI 1.6 ast 61 IMPROVING alt 37 ALKALINE PHOSPHATASE NORMAL. HBSAG +VE HEP C ANTIBODY NEGATIVE. 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 Objective - Vital Signs/Intake and Output Vital Signs (last 24 hours): Temp Pulse Resp BP Pulse Ox 98.2 F 99 H 20 130/91 H 96 11/07/16 07:00 11/07/16 07:00 11/07/16 07:00 11/07/16 07:00 11/07/16 07:00 Intake and Output: 11/07/16 11/07/16 06:59 18:59 Intake Total 650 Balance 650 - Medications Medications: Current Medications Dolutegravir Sodium (Tivicay) 50 mg PO BID [facility] Last Admin: 11/07/16 10:16 Dose: 50 mg Lamivudine (Epivir) 150 mg PO BID [facility] Last Admin: 11/07/16 10:16 Dose: 150 mg Meclizine HCl (Antivert) 25 mg PO Q8 [facility] Last Admin: 11/07/16 13:45 Dose: 25 mg Ritonavir (Norvir) 100 mg PO DAILY [facility] Last Admin: 11/07/16 10:16 Dose: 100 mg - Labs Labs: 11/07/16 08:20 11/07/16 08:20 Assessment and Plan (1) HIV disease Assessment & Plan: continue antiretroviral therapy. Patient on Epivir 150 mg by mouth twice a day Ritonavir 100 mg once a day daily Tivicay 50 mg twice a day with food Intelence (ETRAVIRINE ) 200 mg by mouth twice a day.-Pharmacy does not carry . Patient can have his own medication. RN notified. F/U HIV RNA PCR- QUANTITATIVE LEVELS LYMPHOCYTE SUBSET STUDIES --P. Status: Acute (2) Hypokalemia Status: Acute (3) Anemia Assessment & Plan: H/H IMPROVED ON pROCRIT. Status: Acute (4) Dizziness Assessment & Plan: FEELS BETTER AND LESS DIZZY. dENIES HEADACHE, NAUSEA OR VOMITING. Status: Acute (5) Hepatitis B surface antigen positive Assessment & Plan: HEPATITIS b SURFACE ANTIGEN POSITIVE -CHRONIC CARRIER' FOLLOW-UP SEROLOGIES PENDING Status: Acute (6) Vertigo Status: Acute
[2016-11-07] MEDS: INTELENCE 200 MG PO SCH (17:46)
--- NOTE | 2016-11-07 20:21 | CP.PCM.PN ---
Subjective - Date & Time of Evaluation Date of Evaluation: 11/07/16 Time of Evaluation: 18:30 - Subjective Subjective: Feeling better s/p PRBC transfusion Objective - Vital Signs/Intake and Output Vital Signs (last 24 hours): Temp Pulse Resp BP Pulse Ox 97.8 F 81 20 127/83 100 11/07/16 16:00 11/07/16 16:00 11/07/16 16:00 11/07/16 16:00 11/07/16 16:00 Intake and Output: 11/07/16 11/08/16 18:59 06:59 Intake Total 700 Balance 700 - Medications Medications: Current Medications Dolutegravir Sodium (Tivicay) 50 mg PO BID [facility] Last Admin: 11/07/16 17:46 Dose: 50 mg Home Med (Patient's Own Medication) 1 tab PO BID [facility] Last Admin: 11/07/16 17:46 Dose: 1 tab Lamivudine (Epivir) 150 mg PO BID [facility] Last Admin: 11/07/16 17:46 Dose: 150 mg Meclizine HCl (Antivert) 25 mg PO Q8 [facility] Last Admin: 11/07/16 13:45 Dose: 25 mg Ritonavir (Norvir) 100 mg PO DAILY [facility] Last Admin: 11/07/16 10:16 Dose: 100 mg - Labs Labs: 11/07/16 08:20 11/07/16 08:20 - Head Exam Head Exam: ATRAUMATIC - Eye Exam Eye Exam: Normal appearance - ENT Exam ENT Exam: Mucous Membranes Dry - Respiratory Exam Respiratory Exam: NORMAL BREATHING PATTERN - Cardiovascular Exam Cardiovascular Exam: +S1, +S2 - GI/Abdominal Exam GI & Abdominal Exam: Normal Bowel Sounds - Extremities Exam Extremities Exam: Normal Inspection Assessment and Plan (1) Anemia Assessment & Plan: anemia of chronic disease from HIV s/p 1U PRBC outpatient count check and consideration for Procrit Status: Acute
[2016-11-08 00:08] VITALS: O2SAT 99
[2016-11-08 08:08] VITALS: BP 134/98; PULSE 91; TEMP 98.1
[2016-11-08] MEDS: INTELENCE 200 MG PO SCH (09:31)
--- NOTE | 2016-11-08 13:19 | CP.PCM.PN ---
Subjective - Date & Time of Evaluation Date of Evaluation: 11/08/16 Time of Evaluation: 13:19 - Subjective Subjective: CHIEF COMPLAINTS TODAY : AFEBRILE FEELS BETTER SITTING WITH HIS FAMILY ROS. HEENT : N. Resp : No cough, wheezing ,pleuritic CP ,or hemoptysis Cardio : No anginal CP, PND, orthopnea, palpitation GI : No abd.pain, n/v ,diarrhea or GI bleeding . SPECIAL EVENTS DIRECTOR : No headache, focal deficit. +ve dizziness/ataxia Musculoskel : No joint swelling , Derm : No rash Psych : Normal affect. Ext : No swelling ,calf pain PE. Pt. is alert awake in no distress.LOOKS PALE V.S As noted in the chart Head ,ear nose,throat and eyes : Normal. Neck : Supple with normal carotids. Lungs: Clear air entry. Heart : S1 & S2 normal with S4. No murmur. Abd : Soft non tender with normal bowel sounds. Neuro : Moves all ext. with no localized deficit. Ext : No edema with intact pulses.Non tender calves Derm : No rashes or decubitus ulcer. LABS/RADIOLOGY: CD4 Emiliano CELLS 404 CD4/CD8 RATIOS 0.59. H/H 9.7/28.5 lftS BILI 1.6 ast 61 IMPROVING alt 37 ALKALINE PHOSPHATASE NORMAL. HBSAG +VE HBS -ANTIBODY NEGATIVE HB CORE IGM -VE. HEPT A-IGM ANTIBODY NEGATIVE. HEP C ANTIBODY NEGATIVE. MRI - BRAIN SUBACUTE /OLD INFARCT IN BRAIN STEM AND LACUNAR INF Objective - Vital Signs/Intake and Output Vital Signs (last 24 hours): Temp Pulse Resp BP Pulse Ox 98.1 F 91 H 20 134/98 H 99 11/08/16 08:07 11/08/16 08:07 11/08/16 08:07 11/08/16 08:07 11/08/16 08:07 Intake and Output: 11/08/16 11/08/16 06:59 18:59 Intake Total 500 Balance 500 - Medications Medications: Current Medications Dolutegravir Sodium (Tivicay) 50 mg PO BID [facility] Last Admin: 11/08/16 09:31 Dose: 50 mg Home Med (Patient's Own Medication) 1 tab PO BID [facility] Last Admin: 11/08/16 09:31 Dose: 1 tab Lamivudine (Epivir) 150 mg PO BID [facility] Last Admin: 11/08/16 09:31 Dose: 150 mg Meclizine HCl (Antivert) 25 mg PO Q8 [facility] Last Admin: 11/08/16 05:04 Dose: 25 mg Ritonavir (Norvir) 100 mg PO DAILY [facility] Last Admin: 11/08/16 09:31 Dose: 100 mg - Labs Labs: 11/07/16 08:20 11/07/16 08:20 Assessment and Plan (1) HIV disease Assessment & Plan: continue antiretroviral therapy. Epivir 150 mg by mouth twice a day Ritonavir 100 mg once a day daily Tivicay 50 mg twice a day with food Intelence (ETRAVIRINE ) 200 mg by mouth twice a day.-Pharmacy does not carry . Patient can have his own medication. RN notified. F/U HIV RNA PCR- QUANTITATIVE LEVELS HIV -1 GENOTYPE- PENDING. Status: Acute (2) Hypokalemia Status: Acute (3) Anemia Assessment & Plan: STOOLS blood NEGATIVE. aNEMIA WORKUP IN PROGRESS PER HEMATOLOGY. pROCRIT PER HEMATOLOGY OUTPATIENT. Status: Acute (4) Dizziness Status: Acute (5) Hepatitis B surface antigen positive Assessment & Plan: patient's HBV-DNA PCR quantitative levels pending. Patient has chronic hepatitis B surface antigen positive Will need to follow-up after his viral load obtained May have to adjust his HAART THERAPY IF VIRAL LOAD FOR HEPB IS HIGH. PATIENT TO FOLLOW-UP AN OUTPATIENT HBSAG +VE HBS -ANTIBODY NEGATIVE HB CORE IGM -VE. HEPT A-IGM ANTIBODY NEGATIVE. HEP C ANTIBODY NEGATIVE. Status: Acute (6) Vertigo Status: Acute
--- NOTE | 2016-11-08 13:30 | CP.PCM.DIS ---
Provider - Provider Date of Admission: 11/06/16 19:53 Attending physician: Loyda Christensen MD Time Spent in preparation of Discharge (in minutes): 30 Hospital Course - Lab Results Lab Results: Most Recent Lab Values WBC 5.4 K/uL (4.8-10.8) 11/07/16 08:20 RBC 2.66 Mil/uL (4.40-5.90) L 11/07/16 08:20 Hgb 9.7 g/dL (12.0-18.0) L 11/07/16 08:20 Hct 28.5 % (35.0-51.0) L 11/07/16 08:20 MCV 107.3 fL (80.0-94.0) H D 11/07/16 08:20 MCH 36.3 pg (27.0-31.0) H 11/07/16 08:20 MCHC 33.8 g/dL (33.0-37.0) 11/07/16 08:20 RDW 17.9 % (11.5-14.5) H 11/07/16 08:20 Plt Count 207 K/uL (130-400) 11/07/16 08:20 MPV 8.3 fL (7.2-11.7) 11/07/16 08:20 Neut % (Auto) 65.2 % (50.0-75.0) 11/07/16 08:20 Lymph % (Auto) 26.2 % (20.0-40.0) 11/07/16 08:20 [place] % (Auto) 6.3 % (0.0-10.0) 11/07/16 08:20 Eos % (Auto) 1.6 % (0.0-4.0) 11/07/16 08:20 Baso % (Auto) 0.7 % (0.0-2.0) 11/07/16 08:20 Neut # 3.5 K/uL (1.8-7.0) 11/07/16 08:20 Lymph # 1.4 K/uL (1.0-4.3) 11/07/16 08:20 [place] # 0.3 K/uL (0.0-0.8) 11/07/16 08:20 Eos # 0.1 K/uL (0.0-0.7) 11/07/16 08:20 Baso # 0.0 K/uL (0.0-0.2) 11/07/16 08:20 Differential Comment 11/04/16 12:29 Retic Count 2.9 % (0.5-1.5) H 11/05/16 17:56 Sodium 137 mmol/L (132-148) 11/07/16 08:20 Potassium 4.0 mmol/L (3.6-5.2) 11/07/16 08:20 Chloride 108 mmol/L (98-107) H 11/07/16 08:20 Carbon Dioxide 19 mmol/L (22-30) L 11/07/16 08:20 Anion Gap 14 (10-20) 11/07/16 08:20 BUN 13 mg/dL (9-20) 11/07/16 08:20 Creatinine 1.1 MG/DL (0.8-1.5) 11/07/16 08:20 Est GFR ( Amer) > 60 11/07/16 08:20 Est GFR (Non-Af Amer) > 60 11/07/16 08:20 POC Glucose (mg/dL) 129 mg/dL (65-110) H 11/07/16 11:34 Random Glucose 85 mg/dL (75-110) 11/07/16 08:20 Calcium 8.6 mg/dl (8.6-10.4) 11/07/16 08:20 Ferritin 678.0 ng/mL 11/05/16 17:56 Total Bilirubin 1.6 mg/dL (0.2-1.3) H 11/07/16 08:20 AST 61 U/L (17-59) H 11/07/16 08:20 ALT 32 U/L (21-72) 11/07/16 08:20 Alkaline Phosphatase 87 U/L (38-126) 11/07/16 08:20 Total Protein 6.5 g/dL (6.3-8.3) 11/07/16 08:20 Total Protein (PEP) 6.4 g/dL (6.1-8.1) 11/05/16 17:56 Albumin 2.8 g/dL (3.5-5.0) L 11/07/16 08:20 Globulin 3.7 gm/dL (2.2-3.9) 11/07/16 08:20 Albumin/Globulin Ratio 0.7 (1.0-2.1) L 11/07/16 08:20 Vitamin B12 651 pg/mL (239-931) 11/05/16 17:56 Folate 3.3 ng/mL 11/05/16 17:56 Urine Color Yellow (YELLOW) 11/04/16 15:23 Urine Clarity Clear (Clear) 11/04/16 15:23 Urine pH 6.0 (5.0-8.0) 11/04/16 15:23 Ur Specific [place] 1.008 (1.003-1.030) 11/04/16 15:23 Urine Protein Negative mg/dL (NEGATIVE) 11/04/16 15:23 Urine Glucose (UA) Normal mg/dL (Normal) 11/04/16 15:23 Urine Ketones Negative mg/dL (NEGATIVE) 11/04/16 15:23 Urine Blood Negative (NEGATIVE) 11/04/16 15:23 Urine Nitrate Negative (NEGATIVE) 11/04/16 15:23 Urine Bilirubin Negative (NEGATIVE) 11/04/16 15:23 Urine Urobilinogen Normal mg/dL (0.2-1.0) 11/04/16 15:23 Ur Leukocyte Esterase Neg Cassi/uL (Negative) 11/04/16 15:23 Urine WBC (Auto) < 1 /hpf (0-5) 11/04/16 15:23 Ur Squamous Epith Cells < 1 /hpf (0-5) 11/04/16 15:23 Stool Occult Blood Negative (NEGATIVE) 11/07/16 22:29 Alcohol, Quantitative < 10 mg/dl (0-10) 11/04/16 12:29 Serum Immunofixation Detected (Not Detected) H 11/05/16 17:56 Absolute Lymphs (Flow) 1183 Cells/mcL (850-3900) 11/04/16 22:31 % CD4 Cells 34 Percent (30-61) 11/04/16 22:31 Absolute CD4 Count 404 Cells/mcL (490-1740) L 11/04/16 22:31 T-Help/Suppress Ratio 0.59 Ratio (0.86-5.00) L 11/04/16 22:31 % CD8 Cells 58 Percent (12-42) H 11/04/16 22:31 Absolute CD8 Count 680 Cells/mcL (180-1170) 11/04/16 22:31 Hepatitis A IgM Ab Negative (NEGATIVE) 11/05/16 08:08 Hep Bs Antigen Positive (NEGATIVE) H 11/05/16 08:08 Hep Bs Ag Neutralizatn Confirmed positive H 11/05/16 08:08 Hep Bs Antibody Negative (NEGATIVE) 11/07/16 08:20 Hep B Core IgM Ab Negative (NEGATIVE) 11/05/16 08:08 Hepatitis C Antibody Negative (NEGATIVE) 11/05/16 08:08 Blood Type AB POSITIVE 11/06/16 17:26 Antibody Screen Negative 11/06/16 17:26 - Hospital Course Hospital Course: atmireya is admitted for acute vertigo, unable to walk with unsteady gait. For the last couple of weeks patient been complaining of severe dizziness, unable to walk and with unsteady gait. There is no history of fall or loss of consciousness. Patient has no loss of power in the lower extremities. PAST HIST. Patient is a history of HIV for a long time on anti-viral therapy. Patient was admitted in [facility] in 2016 for acute diarrhea and renal failure. During that time patient had cryptosporidial and positive toxoplasma titers. Patient was treated adequately and has since then resolved. PT RESPODED WITH ANTIVERT MRI NEG PT HAD LOW HG. 7.8 STOOLOCCULT NEG HEM/ID CONSULTED ASSESSMENT , ANEMIA OF CH. DISEASE PT'S VERTIGO DISAPPEARED WITH 1 PC TRANSFUSION PT STABLE FOR D/C OUT PT WILL CONT. HIS PRESENT ANTIRETROVIRAL THERAPY CHECK HG IMMUNOFIXATION WAS DETECTED AND HEM WILL F/U , Discharge Exam - Head Exam Head Exam: ATRAUMATIC Discharge Plan - Follow Up Plan Condition: STABLE Disposition: HOME/ ROUTINE
--- NOTE | 2016-11-08 15:30 | CP.PCM.PN ---
Subjective - Date & Time of Evaluation Date of Evaluation: 11/08/16 Time of Evaluation: 15:30 - Subjective Subjective: PT INFORMED YESTERDAY BY DR. IBARRA OF D/C TODAY. PER DR. IBARRA PT CAN BE D/C HOME TODAY WITH SAME MEDS AND NO NEW RX. TO F/U WITH DR. COOLEY IN HER OFFICE NEXT WEEK. NO FURTHER ORDERS. Objective - Vital Signs/Intake and Output Vital Signs (last 24 hours): Temp Pulse Resp BP Pulse Ox 98.1 F 91 H 20 134/98 H 99 11/08/16 08:07 11/08/16 08:07 11/08/16 08:07 11/08/16 08:07 11/08/16 08:07 Intake and Output: 11/08/16 11/08/16 06:59 18:59 Intake Total 500 Balance 500 - Medications Medications: Current Medications Dolutegravir Sodium (Tivicay) 50 mg PO BID [facility] Last Admin: 11/08/16 09:31 Dose: 50 mg Home Med (Patient's Own Medication) 1 tab PO BID [facility] Last Admin: 11/08/16 09:31 Dose: 1 tab Lamivudine (Epivir) 150 mg PO BID [facility] Last Admin: 11/08/16 09:31 Dose: 150 mg Meclizine HCl (Antivert) 25 mg PO Q8 [facility] Last Admin: 11/08/16 14:36 Dose: 25 mg Ritonavir (Norvir) 100 mg PO DAILY [facility] Last Admin: 11/08/16 09:31 Dose: 100 mg - Labs Labs: 11/07/16 08:20 11/07/16 08:20
[2016-11-08 18:59] LABS: ALBUMIN (PEP) 2.6 g/dL (3.8-4.8); ALPHA-1-GLOBULIN (PEP) 0.4 g/dL (0.2-0.3)
[2016-11-09 02:31] LABS: COPPER 108 mcg/dL (70-175)
[2016-11-14 18:33] LABS: HEPATITIS E AB (IGG) NOT DETECTED; HEPATITIS E AB (IGM) NOT DETECTED
[2016-11-19 16:39] LABS: HIV-1 GENOTYPE NOT DETECTED
== END 2016-11-08 16:03 | disposition home or self-care (01) | DRG 586 ==
LOC: C.ER 11:17 → C.9E 15:31 → C.3T 21:18 → C.5T 11-06 06:38 → OBSVTOIN 11-06 19:53
PROVIDERS: ADMIT Internal Medicine Cardiovascular Disease; ATTEND Internal Medicine Cardiovascular Disease
DX: H83.09 Labyrinthitis, unspecified ear (principal); B20 Human immunodeficiency virus [HIV] disease; E87.6 Hypokalemia; D63.8 Anemia in other chronic diseases classified elsewhere; I10 Essential (primary) hypertension; Z79.899 Other long term (current) drug therapy; F17.210 Nicotine dependence, cigarettes, uncomplicated; Z88.0 Allergy status to penicillin; Z91.81 History of falling

== ENCOUNTER 2016-12-24 12:57 | Emergency (ER) | payer OTHER ==
[2016-12-24 12:57] VITALS: BMI 21.7
[2016-12-24 13:11] VITALS: TEMP 98; O2SAT 98
[2016-12-24] MEDS ORDERED: Epinephrine /Lidocaine HCL 1:100,000/2% 30 ml INJ ONE (13:45)
[2016-12-24] MEDS ORDERED: Lidocaine 2% w Epi 1:100,000 Inj IJ ONE (13:50)
--- NOTE | 2016-12-24 14:10 | C.PDOC ---
Time Seen by Provider: 12/24/16 13:29 Chief Complaint (Nursing): Abnormal Skin Integrity History Per: Patient, Family Onset/Duration Of Symptoms: Days (few) Current Symptoms Are (Timing): Still Present Location Of Injury: Left: Neck Quality Of Symptoms: Painful, Swollen. denies: Draining Severity: Mild Additional History Per: Prior Records Past Medical History Reviewed: Historical Data, Nursing Documentation, Vital Signs Vital Signs: Last Vital Signs Temp 98 F 12/24/16 13:07 Pulse 99 H 12/24/16 13:07 Resp 20 12/24/16 13:07 BP 117/75 12/24/16 13:07 Pulse Ox 98 12/24/16 13:07 - Medical History PMH: HIV, HTN, Seizures - [facility] Procedures INTRODUCTION OF NUTRITIONAL INTO PERIPH VEIN, PERC APPROACH (02/06/16) Family History: States: Unknown Family Hx - Social History Hx Alcohol Use: Yes Hx Substance Use: No - Immunization History Hx Influenza Vaccination: No Review Of Systems Except As Marked, All Systems Reviewed And Found Negative. Constitutional: Negative for: Fever, Weakness ENT: Negative for: Throat Pain, Throat Swelling Cardiovascular: Negative for: Chest Pain Respiratory: Negative for: Cough, Shortness of Breath Gastrointestinal: Negative for: Vomiting, Abdominal Pain Musculoskeletal: Negative for: Neck Pain Neurological: Negative for: Weakness, Numbness, Seizures, Altered Mental Status Physical Exam - Physical Exam Appears: Non-toxic, No Acute Distress Skin: Normal Color, Warm, Dry Head: Atraumatic, Normacephalic Eye(s): bilateral: PERRL, EOMI Oral Mucosa: Moist, No Drooling, No Trismus Gingiva: No Abscess Throat: Normal Neck: Normal ROM, Supple, Other (fluctuant mass on left lateral neck) Cardiovascular: Rhythm Regular Respiratory: Normal Breath Sounds, No Accessory Muscle Use Gastrointestinal/Abdominal: Soft, No Tenderness Extremity: Normal ROM Neurological/Psych: Oriented x3, Normal Speech, Normal Cognition, Normal Motor, Normal Sensation ED Course And Treatment O2 Sat by Pulse Oximetry: 98 Pulse Ox Interpretation: Normal Reassessment Condition: Improved - Incision & Drainage Of Abscess Anesthesia: Lidocaine 2%, With Epi Prep Used: Betadine Procedure: Incised W/Scalpel Blade#: (11), Drained Pus, Cultures Obtained And Sent To Lab Disposition Counseled Patient/Family Regarding: Diagnosis, Need For Followup, Rx Given - Disposition Disposition: HOME/ ROUTINE Disposition Time: 14:11 Condition: IMPROVED Additional Instructions: Follow up with your doctor or return to the ER in 2 days for a wound check. Return to the ER immediately if you develop fever, chills, worsening of symptoms or if you have any other concerns. Prescriptions: Clindamycin [Cleocin] 300 mg PO QID #40 cap Instructions: Abscess Incision and Drainage (ED) Forms: [employer] ([employer]) - Clinical Impression Clinical Impression: Abscess of neck
[2016-12-24 14:19] VITALS: BP 124/72; PULSE 78; RESP 18
== END 2016-12-24 14:19 | disposition home or self-care (01) ==
LOC: C.ER 12:57
DX: L02.11 Cutaneous abscess of neck (principal)

== ENCOUNTER 2016-12-27 12:46 | Emergency (ER) | payer OTHER ==
[2016-12-27 12:47] VITALS: BMI 21.7
[2016-12-27 12:55] VITALS: TEMP 98.5; O2SAT 98
--- NOTE | 2016-12-27 13:31 | C.PDOC ---
History Of Present Illness 56 male, presnets for wound check. as per pt, had i and d 2 days ago. pt states symptoms, pain improved. pt reports compliant with antibiotics. no further drainage. wound was not packed. Time Seen by Provider: 12/27/16 13:09 Chief Complaint (Nursing): Wound Check Past Medical History Reviewed: Historical Data, Nursing Documentation, Vital Signs Vital Signs: Last Vital Signs Temp 98.5 F 12/27/16 12:54 Pulse 95 H 12/27/16 13:45 Resp 16 12/27/16 13:45 BP 148/98 H 12/27/16 13:45 Pulse Ox 98 12/27/16 13:31 - Medical History PMH: HIV, HTN, Seizures Denies: Chronic Kidney Disease - [facility] Procedures INTRODUCTION OF NUTRITIONAL INTO PERIPH VEIN, PERC APPROACH (02/06/16) Family History: States: Unknown Family Hx - Social History Hx Alcohol Use: Yes Hx Substance Use: No - Immunization History Hx Influenza Vaccination: No Review Of Systems Except As Marked, All Systems Reviewed And Found Negative. Skin: Positive for: Other (left neck wound) Physical Exam - Physical Exam Appears: Well, No Acute Distress Skin: Normal Color, Warm, Dry Eye(s): bilateral: Normal Inspection, PERRL, EOMI Nose: Normal Throat: Normal Neck: Normal, Other ((+)left neck wound, 1 cm, no fluctuance, no ttp. minimal induration, erythema) Cardiovascular: Rhythm Regular Respiratory: Normal Breath Sounds Gastrointestinal/Abdominal: Normal Exam Back: Normal Inspection Extremity: Normal ROM ED Course And Treatment O2 Sat by Pulse Oximetry: 98 Medical Decision Making Medical Decision Making: bedside us show minimal collection. advse pt to continue antibiotic regimen. pt reports improving symptoms. advise outpt fu return precautions Disposition - Disposition Disposition: HOME/ ROUTINE Disposition Time: 13:30 Condition: STABLE Additional Instructions: return to er with worsening symptoms or concerns. Instructions: Abscess (ED) Forms: [employer] ([place]) - Clinical Impression Clinical Impression: Wound check, abscess
[2016-12-27] MEDS ORDERED: Bacitracin 500 Units/gm Oint Foilpak UD ONE (13:34)
[2016-12-27 13:45] VITALS: BP 148/98; PULSE 95; RESP 16
== END 2016-12-27 13:37 | disposition home or self-care (01) ==
LOC: C.ER 12:46
DX: Z48.817 Encounter for surgical aftercare following surgery on the skin and subcutaneous tissue (principal)

== ENCOUNTER 2017-01-20 08:26 | Day surgery (SDC) | payer OTHER ==
[2017-01-20 08:53] VITALS: BMI 22.9
[2017-01-20 09:19] VITALS: O2SAT 100
[2017-01-20] MEDS ORDERED: Propofol 10 mg/ml Inj (20 ML) ONE (09:25)
[2017-01-20] MEDS ORDERED: Lidocaine Hydrochloride 5 ML INJ ONE (09:26)
[2017-01-20] MEDS ORDERED: Lactated Ringer's 500 ML IV SCH (09:30)
[2017-01-20] MEDS ORDERED: Lactated Ringer's 1,000 ML IV ONE (10:05)
[2017-01-20] MEDS ORDERED: Simethicone 40 mg/0.6 ml Liquid (30 ml) ONE (10:14)
[2017-01-20 10:49] VITALS: RESP 14; TEMP 97.3
[2017-01-20 11:52] VITALS: BP 154/93; PULSE 59
== END 2017-01-20 11:35 | disposition home or self-care (01) ==
LOC: C.ENDO 08:26
PROVIDERS: ATTEND Internal Medicine Gastroenterology
DX: K64.8 Other hemorrhoids (principal); B18.1 Chronic viral hepatitis B without delta-agent; B20 Human immunodeficiency virus [HIV] disease; A07.2 Cryptosporidiosis
CPT/HCPCS: 45378; J2704; J7120

== ENCOUNTER 2018-07-13 10:27 | Outpatient (CLI) | payer OTHER | END 2018-07-13 10:28 | disposition home or self-care (01) | LOC: C.USIC 10:27 | DX: K70.30 Alcoholic cirrhosis of liver without ascites (principal); B18.1 Chronic viral hepatitis B without delta-agent ==